=== PATIENT | female | born 1935 | race Caucasian/White ===

== ENCOUNTER 2017-02-27 10:43 | Outpatient (CLI) | payer MEDICARE ==
[2017-02-27 11:06] LABS: eGFR (African) > 60; eGFR (Non-African) > 60
== END 2017-02-27 10:44 ==
LOC: LABRHC 10:43
PROVIDERS: ATTEND Family Medicine
DX: I10 Essential (primary) hypertension (principal); E11.9 Type 2 diabetes mellitus without complications
CPT/HCPCS: 80053; 80061; 83036

== ENCOUNTER 2017-08-11 08:42 | Outpatient (CLI) | payer MEDICARE | END 2017-08-11 08:44 | LOC: LAB 08:42 | PROVIDERS: ATTEND Family Medicine | DX: E11.9 Type 2 diabetes mellitus without complications (principal) | CPT/HCPCS: 36415; 83036 ==

== ENCOUNTER 2018-03-06 08:03 | Outpatient (CLI) | payer MEDICARE ==
[2018-03-06 08:58] LABS: eGFR (African) > 60; eGFR (Non-African) > 60
== END 2018-03-06 08:05 ==
LOC: LAB 08:03
PROVIDERS: ATTEND Family Medicine
DX: E11.9 Type 2 diabetes mellitus without complications (principal)
CPT/HCPCS: 36415; 80053; 80061; 83036

== ENCOUNTER 2018-08-28 08:08 | Outpatient (CLI) | payer MEDICARE, OTHER | END 2018-08-28 08:10 | LOC: LAB 08:08 | PROVIDERS: ATTEND Family Medicine | DX: E11.9 Type 2 diabetes mellitus without complications (principal) | CPT/HCPCS: 36415; 83036 ==